=== PATIENT | male | born 1990 | race Two or more races ===

== ENCOUNTER 2021-05-13 11:17 | Emergency (ER) | payer BC ==
[~2021-05-13] VITALS: Ht 182.9 cm; Wt 74.4 kg
[2021-05-13] MEDS ORDERED: FLONASE16 GM NS (11:34)
[2021-05-13] MEDS ORDERED: ZYRTEC10 M2 PO (11:35)
[2021-05-13] MEDS ORDERED: TYLENOL325 MG PO (11:35)
[2021-05-13] MEDS ORDERED: MONTELUKAST SODI4 M1 PO (11:35)
[2021-05-13] MEDS ORDERED: PROAIR HFA8.5 GM (11:35)
== END 2021-05-13 14:55 ==
LOC: ER 11:17
DX: U07.1 COVID-19 (principal)